=== PATIENT | female | born 1975 | race Caucasian/White ===

== ENCOUNTER 2019-07-13 13:58 | Emergency (ER) | payer BC ==
[~2019-07-13] VITALS: Ht 157.5 cm; Wt 91.8 kg
[2019-07-13 14:07] VITALS: TEMP 98.7
[2019-07-13] MEDS ORDERED: MULTI VITAMINS1 TAB PO (14:24)
[2019-07-13 15:41] LABS: C-REACTIVE PROTEIN 3.3 mg/dL (0.0-0.9)
[2019-07-13 15:46] LABS: COLLECTION METHOD CLEAN CATCH
[2019-07-13 15:58] LABS: TROPONIN-I < 0.012 ng/mL (0.000-0.035)
[2019-07-13 16:58] LABS: URINE APPEARANCE Hazy; URINE COLOR Yellow
[2019-07-13 16:59] LABS: PH 8 (5-8); URINE BILIRUBIN Negative (NEGATIVE); URINE BLOOD Negative (NEGATIVE); URINE GLUCOSE Negative (NEGATIVE); URINE KETONE Negative (NEGATIVE); URINE LEUKOCYTE ESTERASE Negative (NEGATIVE); URINE NITRATE Negative (NEGATIVE); URINE PROTEIN(semi-quant) 1+ (NEGATIVE); URINE UROBILINOGEN Negative (NEGATIVE)
[2019-07-13 17:05] LABS: MUCOUS Present /lpf; URINE BACTERIA None Seen /hpf; URINE RBC 0-2 /hpf
[2019-07-13 17:28] VITALS: BP 132/68; PULSE 91
== END 2019-07-13 17:33 | disposition home or self-care (01) ==
LOC: COL.ER 13:58
PROVIDERS: Emergency Medicine
DX: R21 Rash and other nonspecific skin eruption (principal); Z90.710 Acquired absence of both cervix and uterus
CPT/HCPCS: J1100; J1200; J1885; J7030; Q9967

== ENCOUNTER → 2019-07-13 | Outpatient (CLI) | payer BC ==
[~2019-07-13] MED LIST: MULTI VITAMINS1 TAB PO
[2019-07-13 11:46] LABS: MEAN CELL VOLUME 92 fl (80.0-100.0); MEAN CORPUSCULAR HEMOGLOBIN 30 pg (27.0-31.0); MEAN CORPUSCULAR HGB CONC 32 g/dl (33.0-37.0); MEAN PLATELET VOLUME 9.2 fl (7.4-10.4); PLATELET COUNT 413 K/mm3 (130-400); RED BLOOD COUNT 3.69 M/mm3 (4.10-5.30); REDCELL DISTRIBUTION WIDTH-CV 11.5 % (11.5-14.5)
[2019-07-13 11:50] LABS: HEMATOCRIT 34.1 % (37.0-47.0)
[2019-07-13 11:59] LABS: ALBUMIN 3.9 gm/dL (3.5-5.0); BILIRUBIN,TOTAL 0.3 mg/dL (0.0-1.0); CALCIUM 8.9 mg/dL (8.4-10.2); CREATININE, serum 0.47 (0.52-1.25); POTASSIUM 4.3 mmol/L (3.4-5.0); TOTAL PROTEIN 7.1 gm/dL (6.4-8.2)
[2019-07-13 12:40] LABS: BAND 4 % (0-10); EOSINOPHIL 5 % (0-4); LYMPHOCYTE 20 % (20.0-51.0); METAMYELOCYTE 1 % (0-0); NEUTROPHILS 68 % (42.0-75.2); PLATELET ESTIMATE NORMAL (NORMAL)
== END ==
LOC: COL.LAB 10:52
DX: R21 Rash and other nonspecific skin eruption (principal); R06.00 Dyspnea, unspecified